=== PATIENT | male | born 1980 | race Caucasian/White ===

== ENCOUNTER 2018-02-02 08:59 | Emergency (ER) | payer OTHER ==
[~2018-02-02] VITALS: Ht 177.8 cm; Wt 124.7 kg
[~2018-02-02 08:59] MED LIST: ADVAIR HFA115 MCG/21 INH; LEVAQUIN 250 M250 MG PO; MONTELUKAST SOD10 MG PO; PANTOPRAZOLE SO40 M1 PO; PREDNISONE 10 M10 M1 PO; VENTOLIN HFA 1818 GM INH; ZYRTEC10 MG PO
[2018-02-02] MEDS ORDERED: LISINOPRIL10 MG PO (09:07)
[2018-02-02] MEDS ORDERED: AMBIEN 5 MG TABL5 M1 PO (09:09)
[2018-02-02 09:18] LABS: ABSOLUTE BASOPHILS 0.1 thou/uL (0.0-0.2); ABSOLUTE EOSINOPHILS 0.6 thou/uL (0.0-0.7); ABSOLUTE LYMPHOCYTES 3.7 thou/uL (0.8-5.3); ABSOLUTE MONOCYTES 0.9 thou/uL (0.0-1.2); BASOPHILS 1.3 %; EOSINOPHILS 6.7 %; HEMATOCRIT 45.3 % (42.0-52.0); HEMOGLOBIN 16.1 gm/dL (14.0-18.0); MCH 30.1 pg (26.0-34.0); MCHC 35.5 g/dL (28.0-37.0); MCV 84.9 fL (80.0-100.0); MONOCYTES 9.3 %; MPV 9.1 fl. (7.2-11.1); NUCLEATED RBCS 0 /100WBC; PLATELET COUNT* 212 thou/uL (150-400); POLYS 42.7 %; RBC 5.33 mil/uL (4.50-6.00); RDW-CV 12.9 % (10.5-14.5); WBC 9.3 thou/uL (4.0-11.0)
[2018-02-02 09:24] LABS: CALCIUM 9.2 mg/dL (8.5-10.1); CREATININE 1.2 mg/dL (0.6-1.3); POTASSIUM 4.1 mmol/L (3.5-5.1)
[2018-02-02 09:29] LABS: ALBUMIN 4.3 g/dL (3.4-5.0); TOTAL BILIRUBIN 0.5 mg/dL (<0.1-1.0); TOTAL PROTEIN 7.5 g/dL (6.4-8.2)
[2018-02-02 11:07] VITALS: BP 100/54
--- NOTE | 2018-02-02 15:16 | EKG ---
[place] [address] ELECTROCARDIOGRAM REPORT Name: THERESA US Room: [facility]#: [id number] Admission: 02/02/18 Attend Phys: Discharge: 02/02/18 Date of : 78 Report #: [id number] THIS REPORT FOR: //name// [facility] ED Test Date: 2018-02-02 Test Time: 09:05:10 Pat Name: THERESA US Department: Room: Gender: M Customer Account Manager: Jerry ALCANTAR : 1980 Requested By: Cheryl Mcadams Order Number: [id number] MD: Vasu Gilmore Measurements Intervals [place] Rate: 55 P: 37 AK: 145 QRS: -3 QRSD: 115 T: 3 QT: 418 QTc: 400 Interpretive Statements Sinus bradycardia Low voltage, precordial leads Left ventricular hypertrophy Baseline wander in lead(s) V3 Compared to ECG 11/11/2014 15:26:01 Low QRS voltage now present Left ventricular hypertrophy now present Electronically Signed On 02-02-2018 15:16:42 CDT by Vasu Gilmore [email or web address] <ELECTRONICALLY SIGNED> By: Vasu Gilmore MD, [facility] 02/02/18 1516 0905 0905 Vasu Gilmore MD, [facility] /EPI
[2018-02-03 02:06] LABS: LDL (DIRECT) CHOL 162 mg/dL (0-99)
== END 2018-02-02 11:08 | disposition home or self-care (01) ==
LOC: M.ERS 08:59
PROVIDERS: Personal Emergency Response Attendant
DX: R55 Syncope and collapse (principal); I10 Essential (primary) hypertension; J45.909 Unspecified asthma, uncomplicated